=== PATIENT | female | born 1945 | race Caucasian/White ===

== ENCOUNTER 2016-05-25 17:30 | Emergency (ER) | payer OTHER ==
[~2016-05-25] VITALS: Wt 69.0 kg
[~2016-05-25 17:30] MED LIST: AMLO2.5T78 PO; GABA300C16 PO; LANT3I SC; LISI-313 PO; METF500T4 PO; NOVO3I SC; RANI300C7 PO; TRAM50TA2 PO
[2016-05-25] MEDS ORDERED: traMADol 50 MG TAB PO ONE (19:30)
--- NOTE | 2016-05-25 20:42 | RADRPT ---
PROCEDURE: CT lumbar spine without contrast CLINICAL INDICATION: Lower back pain status post fall. TECHNIQUE: CT scan of the lumbar spine was performed on a high-resolution multi-detector CT scanne r. No IV contrast was administered. Coronal and sagittal reformatted images were obtained from the axial source images. Images were reviewed on a high-resolution PACS workstation. Exam CTDI = 23.91 mGy and the DLP = 698.35 mGy-cm. One or more of the following dose reduction techniques were used: Automated exposure control. Adjustment of the mA and/or kV according to patient size. Use of iterative reconstruction technique. COMPARISON: None available FINDINGS: There is normal lumbar lordosis. There is transitional anatomy with lumbarization of S1. There is m ild levoconvex curvature centered at L4-L5. Left lateral bridging osteophyte is seen at L4-L5 and b ilateral at L5-S1. Multiple ill-defined lytic lesions are seen throughout the lumbar spine and pelvi c bones. Alignment remains intact. No acute fracture or dislocation is seen. The vertebral body he ights are preserved. Posterior elements structures are equally unremarkable. The paraspinous soft t issues are unremarkable. No mass, hematoma, or other soft tissue abnormality is seen. There is merlin roximately 1.4 cm indeterminate hypodensity in the right posterior hepatic lobe. There is mild aort oiliac atherosclerosis. There are a few scattered diverticula in the sigmoid colon without evidence of acute diverticulitis. T12-L1: The disk height is maintained. Dorsal endplate osteophyte seen at this level. The central c anal and bilateral neural foramina are adequately patent. L1-L2: The disk height is maintained. Bridging left lateral osteophyte is noted. The central herman l and bilateral neural foramina are adequately patent. L2-L3: There is mild right lateral disk height loss. Disk bulge eccentric to the left, with minima l facet arthropathy are seen at this level. There is mild left neural foraminal stenosis. The cent ral canal and right neural foramen are adequately patent. L3-L4: There is moderate right lateral disk height loss with discogenic endplate changes. Disk ost eophyte complex with small endplate osteophytes, and mild to moderate facet arthropathy are seen at this level. There is mild central canal stenosis. Bilateral neural foramina remain adequately moran nt. L4-L5: There is mild right lateral disk height loss. Bulky bridging left lateral osteophyte is pres ent. Diffuse disk bulge with moderate facet arthropathy and ligamentum flavum thickening are seen a t this level. There is moderate central canal stenosis with effacement of the left lateral recess. Bilateral neural foramina remain adequately patent. L5-S1: Partial fusion at disk level with bridging bilateral lateral osteophytes are present. Disk osteophyte complex, moderate facet arthropathy with ligamentum flavum thickening are seen at this le ranjeet. There is bilateral lateral recess stenosis. There is mild left neural neural foraminal stenos is. IMPRESSION: 1. No acute fracture or traumatic malalignment. 2. Numerous ill-defined lytic lesions in the lumbar spine and pelvic bones concerning for multiple myeloma or metastatic disease. Correlate with clinical history. Consider bone scan for further curt luation. 3. Mild multilevel degenerative changes more evident at L4-L5 and L5-S1, as detailed above. RPTAT: HHO .Maryan Manzanares MD, MD Date Time Electronically viewed and signed by .Maryan Manzanares MD, on 05/25/2016 20:41 .O/
[2016-05-25] MEDS ORDERED: HYDR-906 PO (20:54)
[2016-05-25 20:56] VITALS: BP 127/60; PULSE 90; RESP 19; TEMP 100
--- NOTE | 2016-05-25 21:12 | ERD ---
ER Documentation Chief Complaint Date/Time DATE: 05/25/16 TIME: 20:58 Chief Complaint BACKPAIN FROM A FALL THIS MORNING. NO NECK PAIN. NO LOC OR HEAD INJURY HPI 71-year-old female complaining of lower back pain 15 years. This morning, she fell while standing up from the toilet. She landed on her left arm. Patient states that her back pain got much worse after the fall this morning. The pain is in the lumbar region, and radiates down bilateral legs. Denies saddle paresthesia. Denies bowel or bladder dysfunction. History of diabetes, hypertension, hypercholesterol, and arthritis. Denies history of cancer. ROS All systems reviewed and are negative except as per history of present illness. Medications Home Meds Active Scripts Hydrocodone/Acetaminophen (Odell 5-325 Tablet) 1 Each Tablet, 1 TAB PO Q6H Y for PAIN, #20 TAB Prov:KIKI PHAM. PIPE SMOKING MACHINE OFFBEARER 05/25/16 Reported Medications Lisinopril* (Lisinopril*) 5 Mg Tablet, 5 MG PO DAILY, #30 TAB 02/01/16 Amlodipine Besylate* (Amlodipine Besylate*) 2.5 Mg Tablet, 2.5 MG PO DAILY, #30 TAB 02/01/16 Insulin Aspart* (Novolog Insulin Pen*) 100 Unit/Ml Soln, 10 UNIT SC AC MEALS, EA 01/14/14 Insulin Glargine* (Lantus*) 100 Unit/Ml Soln, 45 UNIT SC HS, EA 01/14/14 Tramadol HCl (Tramadol HCl) 50 Mg Tab, 50 MG PO TID, TAB 01/14/14 Ranitidine Hcl (Ranitidine Hcl) 300 Mg Capsule, 300 MG PO HS, CAP 01/14/14 Gabapentin* (Gabapentin*) 300 Mg Capsule, 600 MG PO QHS, CAP 01/14/14 Metformin* (Glucophage*) 500 Mg Tab, 500 MG PO BID 08/29/12 Allergies Allergies: Coded Allergies: Penicillins (Verified Allergy, Severe, 02/01/16) ibuprofen (Verified Allergy, Severe, 02/01/16) PMhx/Soc History of Surgery: Yes (HYSTERECTOMY, THYROID SX) Anesthesia Reaction: No Hx Neurological Disorder: No Hx Respiratory Disorders: No Hx Cardiac Disorders: No Hx Psychiatric Problems: No Hx Miscellaneous Medical Probl: No Hx Alcohol Use: No Hx Substance Use: No Hx Tobacco Use: No Physical Exam Vitals Vital Signs Date Time Temp Pulse Resp B/P Pulse Ox O2 Delivery O2 Flow Rate FiO2 05/25/16 20:56 100.0 90 19 127/60 97 Room Air 05/25/16 17:35 98.2 95 20 139/66 98 Physical Exam General impression: Well-developed, well-nourished. Alert, oriented, in no acute distress Head: Normocephalic, atraumatic. Neck: Supple, nontender. No lymphanopathy. No nuchal rigidity. Respiration: Normal respiratory effort. Lungs clear to auscultate bilaterally. No wheezes, rales or rhonchi. Cardiovascular: Regular rate and rhythm. No murmurs or extra heart sounds. Back: Normal to inspection. No midline spine tenderness. Bilateral paraspinal muscle spasm noted in the lumbar region. Extremities: Extremities normal to inspection, nontender. ROM normal. No left arm and left shoulder tenderness. Neuro: Mental status normal, speech normal. No saddle paresthesia. Skin: Normal turgor. No rash or lesions. Psych: Normal mood and affect. Results 24 hrs Current Medications Medications (Trade) Dose Ordered Sig/Taj Route PRN Reason Start Time Stop Time Status Last Admin Dose Admin Tramadol HCl (Ultram) 50 mg ONCE ONCE PO 05/25/16 19:30 05/25/16 19:31 DC 05/25/16 19:15 Procedures/MDM 71-year-old female presented ED with acute on chronic lower back pain. CT of lumbar spine was obtained to rule out fractures. No acute fracture or traumatic malalignment seen on CT. Multiple ill-defined lytic lesions in the lumbar spine and pelvic bones concerning for multiple myeloma or metastatic disease. Mild multilevel degenerative changes noted, more evident at L4-L5 and L5-S1. Low suspicion for cauda equina syndrome, or spinal epidural abscess. Patient is given tramadol 50 mg p.o. in the ED. Patient states that no improvement pain with tramadol. I will prescribe her with small amount of Odell for home. Patient is also advised to use a heating pad and obtain massage to ease her muscle spasm. Patient advised to follow-up with her PCP for further evaluation of the lytic lesions in her spine. Patient appears well, stable for discharge and outpatient management. Medical decision making shared with patient and family. Education provided to patient and family. Patient and family expressed understanding of the plan. Medications on discharge: Odell. Follow-up: Primary care provider in 2-3 days or return to ED if worse. Departure Diagnosis: Primary Impression: Back pain Back pain location: low back pain Chronicity: chronic Back pain laterality : bilateral Sciatica presence: without sciatica Qualified Code: M54.5 - Chronic bilateral low back pain without sciatica Condition: Good Patient Instructions: Back Pain (Acute Or Chronic), Back Spasm, No Trauma Referrals: QUEENIE HARRISON (PCP) Additional Instructions: Llame al doctor MAANA y tricia kenia ANGÉLICA PARA DENTRO DE 2-3 ALBA.Dgale a la secretaria que nosotros le instruimos hacer esta angélica.Avise o llame si vila condicin se empeora antes de la angélica. Regresa aqui si peor o no mejor. KIKI PHAM NP May 25, 2016 21:08
== END 2016-05-25 20:58 | disposition home or self-care (01) ==
LOC: FTE 17:30
DX: S39.92XA Unspecified injury of lower back, initial encounter (principal); I10 Essential (primary) hypertension; E11.9 Type 2 diabetes mellitus without complications; W18.11XA Fall from or off toilet without subsequent striking against object, initial encounter; Y92.89 Other specified places as the place of occurrence of the external cause; Z79.84 Long term (current) use of oral hypoglycemic drugs; Z79.4 Long term (current) use of insulin
CPT/HCPCS: 72131; Z7502; Z7610

== ENCOUNTER 2016-06-21 12:01 | Emergency (ER) | payer OTHER ==
[~2016-06-21] VITALS: Ht 160 cm; Wt 66.9 kg
[~2016-06-21 12:01] MED LIST changes: +HYDR-906 PO
[2016-06-21 12:14] VITALS: Ht 160 cm; Wt 66.9 kg
[2016-06-21] MEDS ORDERED: LIDOCAINE 2% (MDV) 20 ML INJ INJ ONE (13:00)
[2016-06-21] MEDS ORDERED: LIDOCAINE 4% CR TOP ONE (13:00)
[2016-06-21] MEDS ORDERED: BACTDS PO (14:03)
--- NOTE | 2016-06-21 14:11 | ERD ---
ER Documentation Chief Complaint Date/Time DATE: 06/21/16 TIME: 14:06 Chief Complaint abscess to the chest (ASHLEIGH STORMTATIANA Kilgore) HPI This is a 71-year-old female that presents to the ER with an abscess to her chest wall. Patient states that she has had this problem for the last few months and that on Friday began to get red and she noticed that there was pus under it. Patient states that area is very painful. She denies any fevers or chills. Patient denies any chest pain or shortness of breath. Patient has had these recurring abscesses in (CONG STORM) ROS 12 point review of systems was done, all negative except per HPI. (CONG STORM) Medications Home Meds Active Scripts Sulfamethoxazole-Trimethoprim* (Bactrim* DS) 800-160 Mg Tab, 1 TAB PO BID for 7 Days, TAB Prov:CONG STORM 06/21/16 Hydrocodone/Acetaminophen (Ashford 5-325 Tablet) 1 Each Tablet, 1 TAB PO Q6H Y for PAIN, #20 TAB Prov:KIKI PHAM MIRROR FINISHING MACHINE OPERATOR 05/25/16 Reported Medications Lisinopril* (Lisinopril*) 5 Mg Tablet, 5 MG PO DAILY, #30 TAB 02/01/16 Amlodipine Besylate* (Amlodipine Besylate*) 2.5 Mg Tablet, 2.5 MG PO DAILY, #30 TAB 02/01/16 Insulin Aspart* (Novolog Insulin Pen*) 100 Unit/Ml Soln, 10 UNIT SC AC MEALS, EA 01/14/14 Insulin Glargine* (Lantus*) 100 Unit/Ml Soln, 45 UNIT SC HS, EA 01/14/14 Tramadol HCl (Tramadol HCl) 50 Mg Tab, 50 MG PO TID, TAB 01/14/14 Ranitidine Hcl (Ranitidine Hcl) 300 Mg Capsule, 300 MG PO HS, CAP 01/14/14 Gabapentin* (Gabapentin*) 300 Mg Capsule, 600 MG PO QHS, CAP 01/14/14 Metformin* (Glucophage*) 500 Mg Tab, 500 MG PO BID 08/29/12 Allergies Allergies: Coded Allergies: Penicillins (Verified Allergy, Severe, 02/01/16) ibuprofen (Verified Allergy, Severe, 02/01/16) PMhx/Soc History of Surgery: Yes (HYSTERECTOMY, partial thyroidectomy) Anesthesia Reaction: No Hx Neurological Disorder: No Hx Respiratory Disorders: No Hx Cardiac Disorders: No Hx Psychiatric Problems: No Hx Alcohol Use: No Hx Substance Use: No Hx Tobacco Use: No (CONG STORM) Physical Exam Vitals Vital Signs Date Time Temp Pulse Resp B/P Pulse Ox O2 Delivery O2 Flow Rate FiO2 06/21/16 12:14 98.4 100 18 136/62 96 (KRISTIN CARABALLO MD) Physical Exam GENERAL: The patient is well developed and appropriate for usual state of health , in no apparent distress. HEENT: Atraumati CHEST: Clear to auscultation bilaterally. There are no rales, wheezes or rhonchi. Patient has a 4 cm x 4 cm area of fluctuance on the left side of the chest. HEART: Regular rate and rhythm. No murmurs, clicks, rubs or gallops. NEURO: Alert and oriented. SKIN: no rashes (CONG STORM) Results 24 hrs Current Medications Medications (Trade) Dose Ordered Sig/Taj Route PRN Reason Start Time Stop Time Status Last Admin Dose Admin Lidocaine (Lmx 4% Plus) 1 applic ONCE ONCE TOP 06/21/16 13:00 06/21/16 13:01 DC Lidocaine (Xylocaine 2% (Mdv) 20 ml) 20 ml ONCE ONCE INJ 06/21/16 13:00 06/21/16 13:01 DC (KRISTIN CARABALLO MD) Procedures/MDM Abscess Incision and Drainage with irrigation by me: Location: left side of chest wall Anesthesia: LMX and Local 1% Lidocaine Technique: Irrigated. Disrupted loculations w/ instrumentation. cheesy like discharged was expressed and purulent yellow/green discharge as well Packin/4 inch Complications: Neurovascularly intact post procedure 48 hour wound check. Scar minimization instructions given. Patient's skin symptoms have stabilized while they have been evaluated in the department and are appropriate for outpatient care and work up. Exam and w/u not consistent w/ sepsis, deep space infection, or foreign body. Patient will be sent home with Bactrim. She is to follow-up with her primary care doctor within 1-2 days return to ER sooner if symptoms worsen. Dr. Caraballo was at bedside and helped with procedure and patient care. Patient needs to return to ER sooner if symptoms worsen. (CONG STORM) note-I agree with detailed history and physical exam procedure plan of mid- level provider Subjective -patient presents with worsening redness and tender lesion on her anterior chest wall. She has a history of a previous small bump. History signs and symptoms consistent with an infected sebaceous cyst. Objective-afebrile and vital signs stable with no acute abnormalities. There is a tender approximately 2 cm erythematous fluctuant lesion on anterior chest wall. Patient was incised and drained after Betadine and local 3 cc of 1% lidocaine anesthesia was packed with approximately 3 cm of quarter-inch gauze. Patient tolerated procedure well. Assessment-infected sebaceous cyst anterior chest wall status post incision and drainage Plan-patient was discharged home with a prescription of Bactrim instructions for wound check in 2 days and gauze removal. Patient was advised to return sooner for new or worsening symptoms or fevers, worsening redness. (KRISTIN CARABALLO MD) Departure Diagnosis: Primary Impression: Sebaceous cyst Condition: Stable Patient Instructions: Abscess, Incision And Drainage Additional Instructions: Regrese a estas instalaciones dentro de DOS TRAORE para un examen de seguimiento.Regrese antes si vila condicin se empeora. CONG STORM Jun 21, 2016 14:11 KRISTIN CARABALLO MD Jun 21, 2016 14:27
== END 2016-06-21 14:56 | disposition home or self-care (01) ==
LOC: FTE 12:01
DX: L72.3 Sebaceous cyst (principal); E11.9 Type 2 diabetes mellitus without complications; Z79.4 Long term (current) use of insulin; Z79.84 Long term (current) use of oral hypoglycemic drugs
CPT/HCPCS: 10060; Z7502; Z7610

== ENCOUNTER 2016-06-23 10:49 | Emergency (ER) | payer OTHER ==
[~2016-06-23] VITALS: Ht 152.4 cm; Wt 66.5 kg
[~2016-06-23 10:49] MED LIST changes: +BACTDS PO
[2016-06-23 10:53] VITALS: Ht 152.4 cm; Wt 66.5 kg
--- NOTE | 2016-06-23 15:56 | ERD ---
ER Documentation Chief Complaint Date/Time DATE: 06/23/16 TIME: 15:54 Chief Complaint Chest cyst 48 hour follow up after I & D. Serousangenous drainage noted. HPI 71-year-old female presents to the ED for a wound check. Patient got a chest abscess drained 2 days ago here in the ED. Patient states that the pain has improved. States that she has been taking Bactrim consistently. Denies any new pain, fever, chills, chest pain, shortness of breath, abdominal pain, nausea , vomiting, loss of sensation, redness, swelling. ROS All systems reviewed and are negative except as per history of present illness. Medications Home Meds Active Scripts Sulfamethoxazole-Trimethoprim* (Bactrim* DS) 800-160 Mg Tab, 1 TAB PO BID for 7 Days, TAB Prov:CONG STORM 06/21/16 Hydrocodone/Acetaminophen (Soldier 5-325 Tablet) 1 Each Tablet, 1 TAB PO Q6H Y for PAIN, #20 TAB Prov:KIKI PHAM. HOUSE ADMIN 05/25/16 Reported Medications Lisinopril* (Lisinopril*) 5 Mg Tablet, 5 MG PO DAILY, #30 TAB 02/01/16 Amlodipine Besylate* (Amlodipine Besylate*) 2.5 Mg Tablet, 2.5 MG PO DAILY, #30 TAB 02/01/16 Insulin Aspart* (Novolog Insulin Pen*) 100 Unit/Ml Soln, 10 UNIT SC AC MEALS, EA 01/14/14 Insulin Glargine* (Lantus*) 100 Unit/Ml Soln, 45 UNIT SC HS, EA 01/14/14 Tramadol HCl (Tramadol HCl) 50 Mg Tab, 50 MG PO TID, TAB 01/14/14 Ranitidine Hcl (Ranitidine Hcl) 300 Mg Capsule, 300 MG PO HS, CAP 01/14/14 Gabapentin* (Gabapentin*) 300 Mg Capsule, 600 MG PO QHS, CAP 01/14/14 Metformin* (Glucophage*) 500 Mg Tab, 500 MG PO BID 08/29/12 Allergies Allergies: Coded Allergies: Penicillins (Verified Allergy, Severe, 02/01/16) ibuprofen (Verified Allergy, Severe, 02/01/16) PMhx/Soc History of Surgery: Yes (HYSTERECTOMY, partial thyroidectomy) Anesthesia Reaction: No Hx Neurological Disorder: No Hx Respiratory Disorders: No Hx Cardiac Disorders: Yes (htn) Hx Psychiatric Problems: No Hx Alcohol Use: No Hx Substance Use: No Hx Tobacco Use: No Smoking Status: Never smoker Physical Exam Vitals Vital Signs Date Time Temp Pulse Resp B/P Pulse Ox O2 Delivery O2 Flow Rate FiO2 06/23/16 10:53 97.7 109 20 121/55 98 Physical Exam Const: Ipt-gss-glztsffre, well-nourished. In no acute distress. Head: Atraumatic, normocephalic Eyes: Normal Conjunctiva without injection. No purulent discharge. PERRL. EOMI ENT: Normal external ear, nose, mouth. No drooling. No trismus. Neck: Full range of motion. No meningismus. No cervical lymphadenopathy. Resp: Clear to auscultation bilaterally. No wheezing, rhonchi, rales, or crackles. No accessory muscle use. No retractions. Cardio: Regular rate and rhythm. No murmurs, rubs or gallops. Skin: No petechiae, purpura. 2 cm round abscess noted on the left side of patient's anterior chest without any fluctuance, induration. No bleeding noted. Packing was noted. No purulent discharge noted. Ext: No cyanosis, or edema. Neur: Awake and alert. Psych: Normal Mood and Affect Procedures/MDM This is a 71-year-old female with no significant past medical history presents to the ED for a wound check. Patient gave consent to remove the packing at this time. A clean dressing was applied after it was cleaned with normal saline. There is low suspicion for cellulitis, deep space infection, acute ID, pneumothorax, pneumonia, chest wall pain, or other emergent conditions. Strictly instructed patient to complete the course of antibiotics. Follow up with primary care physician in 1-2 days. Instructed patient to return to the ED sooner for any worsening symptoms. Patient's questions were answered. Patient understood and agreed with discharge plan. Patient discharged stable. Departure Diagnosis: Primary Impression: Encounter for wound re-check Condition: Stable Patient Instructions: Wound Care, Wound Packing Referrals: TORI CAST (PCP) [facility] YOU HAVE RECEIVED A MEDICAL SCREENING EXAM AND THE RESULTS INDICATE THAT YOU DO NOT HAVE A CONDITION THAT REQUIRES URGENT TREATMENT IN THE EMERGENCY DEPARTMENT. FURTHER EVALUATION AND TREATMENT OF YOUR CONDITION CAN WAIT UNTIL YOU ARE SEEN IN YOUR DOCTORS OFFICE WITHIN THE NEXT 1-2 DAYS. IT IS YOUR RESPONSIBILITY TO MAKE AN APPOINTMENT FOR FOLOW-UP CARE. IF YOU HAVE A PRIMARY DOCTOR --you should call your primary doctor and schedule an appointment IF YOU DO NOT HAVE A PRIMARY DOCTOR YOU CAN CALL OUR PHYSICIAN REFERRAL HOTLINE AT IF YOU CAN NOT AFFORD TO SEE A PHYSICIAN YOU CAN CHOSE FROM THE FOLLOWING [facility] [address] [facility] [address] [facility] [facility] [address] [facility] [address] [facility]. [facility] [address] [facility]. [facility] [address] [facility]. [facility] YOU HAVE RECEIVED A MEDICAL SCREENING EXAM AND THE RESULTS INDICATE THAT YOU DO NOT HAVE A CONDITION THAT REQUIRES URGENT TREATMENT IN THE EMERGENCY DEPARTMENT. FURTHER EVALUATION AND TREATMENT OF YOUR CONDITION CAN WAIT UNTIL YOU ARE SEEN IN YOUR DOCTORS OFFICE WITHIN THE NEXT 1-2 DAYS. IT IS YOUR RESPONSIBILITY TO MAKE AN APPOINTMENT FOR FOLOW-UP CARE. IF YOU HAVE A PRIMARY DOCTOR --you should call your primary doctor and schedule and appointment IF YOU DO NOT HAVE A PRIMARY DOCTOR YOU CAN CALL OUR PHYSICIAN REFERRAL HOTLINE AT . IF YOU CAN NOT AFFORD TO SEE A PHYSICIAN YOU CAN CHOSE FROM THE FOLLOWING [facility] INSTITUTIONS: [facility] [address] [place] [address] [facility] [address] [place] [address] [facility] [address] [place] [address] [facility] URGENT CARE/SPECIALTIES Additional Instructions: Llame al doctor MAANA y tricia kenia ANGÉLICA PARA DENTRO DE 1-2 ALBA.Dgale a la secretaria que nosotros le instruimos hacer esta angélica.Avise o llame si vila condicin se empeora antes de la angélica. Regresa aqui si peor o no mejor. BHUPENDRA MOTLEY PA-Cb 26, 2017 15:56 Llame al doctor MAANA y tricia kenia ANGÉLICA PARA DENTRO DE 1-2 ALBA.Dgale a la secretaria que nosotros le instruimos hacer esta angélica.Avise o llame si vila condicin se empeora antes de la angélica. Regresa aqui si peor o no mejor. BHUPENDRA MOTLEY PA-C Jun 23, 2016 15:56
== END 2016-06-23 12:01 | disposition home or self-care (01) ==
LOC: FTE 10:49
DX: Z48.01 Encounter for change or removal of surgical wound dressing (principal); I10 Essential (primary) hypertension; E11.9 Type 2 diabetes mellitus without complications; Z79.4 Long term (current) use of insulin; Z79.84 Long term (current) use of oral hypoglycemic drugs
CPT/HCPCS: 99281

== ENCOUNTER 2016-12-31 11:22 | Emergency (ER) | payer OTHER ==
[~2016-12-31] VITALS: Ht 157.5 cm; Wt 70.0 kg
[2016-12-31 11:35] VITALS: Ht 157.5 cm; Wt 70.0 kg
[2016-12-31] MEDS ORDERED: MECLIZINE 12.5 MG TAB PO ONE (14:30)
--- NOTE | 2016-12-31 15:45 | RADRPT ---
PROCEDURE: CT Brain without contrast. CLINICAL INDICATION: Dizziness. TECHNIQUE: A CT of the brain was performed on multidetector high-resolution CT scanner utilizing a xial sections from the skull base through the vertex without contrast. The scan was reviewed in sof t tissue brain and high frequency resolution bone algorithm windows. Images were reviewed on a high -resolution PACS workstation. One or more the following does reduction techniques were utilized: Aut omated exposure control, adjustment of the mA/ or kV according to patient's size, or use of iterativ e reconstruction technique. The exam CTDI = 44.60 mGy and the DLP = 630.2 mGy-cm. COMPARISON: Brain CT 08/29/2012. FINDINGS: The ventricles and sulci are mildly prominent indicative of volume loss. There is no intracranial h emorrhage, mass effect or midline shift. No abnormal intra-axial or extra-axial fluid collections a re seen. The nathan/white matter differentiation is preserved. There are mild scattered foci of hypoattenuation in the white matter, which are nonspecific in etiol ogy but likely reflect chronic small vessel ischemic changes. There are mild intracranial vascular calcifications consistent with atherosclerosis. The visualized paranasal sinuses are essentially rodney ar. The left mastoid air cells are underpneumatized/partially visualized. IMPRESSION: 1. No acute intracranial hemorrhage, transcortical infarction or mass effect. 2. Mild intracranial atherosclerosis and chronic small vessel ischemic changes. 3. Mild generalized cerebral volume loss. RPTAT: HH .Mariana Monsivais MD, MD Date Time Electronically viewed and signed by .Mariana Monsivais MD, MD on 12/31/2016 15:44 .N/
[2016-12-31 15:50] LABS: BASOPHILS % 0.4 % (0.0-2.0); EOSINOPHILS % 0.4 % (0.0-7.0); HEMATOCRIT 37.8 % (37.0-47.0); HEMOGLOBIN 12.1 g/dl (12.0-16.0); LYMPHOCYTES # 1.9 10^3/ul (0.8-2.9); MEAN CORPUSCULAR HEMOGLOBIN 27.8 pg (29.0-33.0); MEAN CORPUSCULAR VOLUME 86.9 fl (82.0-101.0); MEAN PLATELET VOLUME 9.4 fl (7.4-10.4); MONOCYTE # 0.3 10^3/ul (0.3-0.9); NEUTROPHILS % 69.7 % (39.0-77.0); PLATELET COUNT 350 10^3/UL (140-415); RED BLOOD COUNT 4.35 10^6/ul (4.20-5.40); RED CELL DISTRIBUTION WIDTH 14.6 % (11.5-14.5); WHITE BLOOD COUNT 7.5 10^3/ul (4.8-10.8)
[2016-12-31] MEDS ORDERED: LANT3I SC (16:01)
[2016-12-31] MEDS ORDERED: METF1000 PO (16:01)
[2016-12-31 16:04] LABS: ADD UMIC YES; UR ASCORBIC ACID NEGATIVE (NEGATIVE); UR BILIRUBIN (Dip) NEGATIVE (NEGATIVE); UR BLOOD (Dip) NEGATIVE (NEGATIVE); UR CLARITY CLEAR (CLEAR); UR COLOR STRAW (YELLOW); UR GLUCOSE (Dip) 2+ mg/dL (NEGATIVE); UR KETONES (Dip) NEGATIVE (NEGATIVE); UR LEUKOCYTE ESTERASE (Dip) 1+ Leu/ul (NEGATIVE); UR NITRITE (Dip) NEGATIVE (NEGATIVE); UR RBC 0 /HPF (0-5); UR SPECIFIC GRAVITY (Dip) 1.009 (1.003-1.030); UR TOTAL PROTEIN (Dip) NEGATIVE (NEGATIVE); UR UROBILINOGEN (Dip) NEGATIVE (NEGATIVE)
[2016-12-31] MEDS ORDERED: LISI10TA2 PO (16:04)
[2016-12-31] MEDS ORDERED: INSU100I12 SQ (16:04)
[2016-12-31 16:06] LABS: INR 0.91; PROTIME 12.2 Sec (12.2-14.2)
[2016-12-31 16:07] LABS: PARTIAL THROMBOPLASTIN TIME 26.5 Sec (25.0-35.0)
[2016-12-31 16:09] LABS: ANION GAP 15 (8-16); BLOOD UREA NITROGEN 12 mg/dl (7-20); CALCIUM 9.7 mg/dl (8.4-10.2); CARBON DIOXIDE 28 mmol/L (21-31); CHLORIDE 99 mmol/L (97-110); CREATININE 0.77 mg/dl (0.44-1.00); GLUCOSE 273 mg/dl (70-220); POTASSIUM 4.4 mmol/L (3.5-5.1); SODIUM 138 mmol/L (135-144)
[2016-12-31] MEDS ORDERED: BASAGLAR 100 UNIT/ML SQ (16:12)
[2016-12-31 16:24] LABS: TROPONIN-I < 0.012 ng/ml (0.00-0.12)
[2016-12-31 16:26] LABS: BARBITURATES Negative (NEGATIVE); BENZODIAZEPINES Negative (NEGATIVE); CANNABINOIDS Negative (NEGATIVE); COCAINE Negative (NEGATIVE); OPIATES Negative (NEGATIVE)
--- NOTE | 2016-12-31 16:32 | ERA ---
ER Documentation Chief Complaint Date/Time DATE: 12/31/16 TIME: 16:24 Chief Complaint dizzines and nausea HPI This is a 71-year-old female with a past medical history of diabetes, hypertension, GERD, diabetic peripheral neuropathy, previous episodes of vertigo who is presenting with concerns by the patient that she is having an exacerbation of her vertigo. She states that when she stands still or lays down and closes her eyes, her symptoms significantly improve. However, when she opens her eyes and looks around or when she sits up with her eyes open, she has a sudden feeling of dizziness, like the room is spinning around her and she feels nauseated. She has had a few episodes of nonbilious nonbloody vomiting associated with the nausea. The patient has not been sick recently. She has had no fever or chills. She denies any trauma. She did not fall or hit her head. She denies any focal deficits. She has no weakness or numbness or tingling to the face or extremities. She does not feel uncoordinated. She denies any chest pain or trouble breathing. She has no abdominal pain. She has not had any changes to bowel movements urination. ROS All systems reviewed and are negative except as per history of present illness. Medications Home Meds Reported Medications [Basaglar 100UNIT/Ml] No Conflict Check, 50 UNIT SQ QHS INSULIN KWIKPEN 12/31/16 Lisinopril* (Lisinopril*) 10 Mg Tablet, 10 MG PO DAILY, #30 TAB 12/31/16 Insulin Lispro (Humalog Kwikpen U-100) 100 Unit/1 Ml Insuln.pen, 0 SQ SLIDING SCALE 12 UNITS-QAM,11 UNITS-NOON, 11 UNITS-QPM 12/31/16 Metformin Hcl* (Metformin Hcl*) 1,000 Mg Tablet, 1000 MG PO WITH BREAKFAST DINNE , #60 TAB 12/31/16 Amlodipine Besylate* (Amlodipine Besylate*) 2.5 Mg Tablet, 2.5 MG PO DAILY, #30 TAB 02/01/16 Tramadol HCl (Tramadol HCl) 50 Mg Tab, 50 MG PO TID, TAB 01/14/14 Ranitidine Hcl (Ranitidine Hcl) 300 Mg Capsule, 300 MG PO HS, CAP 01/14/14 Gabapentin* (Gabapentin*) 300 Mg Capsule, 600 MG PO QHS, CAP 01/14/14 Discontinued Reported Medications Insulin Glargine* (Lantus*) 100 Unit/Ml Soln, 50 UNIT SC QHS, #1 VIAL 12/31/16 Lisinopril* (Lisinopril*) 5 Mg Tablet, 5 MG PO DAILY, #30 TAB 02/01/16 Insulin Aspart* (Novolog Insulin Pen*) 100 Unit/Ml Soln, 10 UNIT SC AC MEALS, EA 01/14/14 Insulin Glargine* (Lantus*) 100 Unit/Ml Soln, 45 UNIT SC HS, EA 01/14/14 Metformin* (Glucophage*) 500 Mg Tab, 500 MG PO BID 08/29/12 Discontinued Scripts Sulfamethoxazole-Trimethoprim* (Bactrim* DS) 800-160 Mg Tab, 1 TAB PO BID for 7 Days, TAB Prov:CONG STORM 06/21/16 Hydrocodone/Acetaminophen (Glen 5-325 Tablet) 1 Each Tablet, 1 TAB PO Q6H Y for PAIN, #20 TAB Prov:KIKI PHAM LINING CASER 05/25/16 Allergies Allergies: Coded Allergies: Penicillins (Verified Allergy, Severe, 12/31/16) ibuprofen (Verified Allergy, Severe, 12/31/16) PMhx/Soc History of Surgery: Yes (HYSTERECTOMY, partial thyroidectomy) Anesthesia Reaction: No Hx Neurological Disorder: No Hx Respiratory Disorders: No Hx Cardiac Disorders: Yes (htn) Hx Psychiatric Problems: No Hx Miscellaneous Medical Probl: Yes (dm) Hx Alcohol Use: No Hx Substance Use: No Hx Tobacco Use: No Smoking Status: Never smoker FmHx Family History: diabetes Physical Exam Vitals Vital Signs Date Time Temp Pulse Resp B/P Pulse Ox O2 Delivery O2 Flow Rate FiO2 12/31/16 19:47 98.3 92 17 113/72 99 Room Air 12/31/16 16:00 95 18 111/69 98 Room Air 12/31/16 11:35 98.1 81 18 118/78 99 Physical Exam Const: NAD, Well developed, Well Nourished Head: Atraumatic Eyes: Normal Conjunctiva, PERRLA, EOMI, Nystagmus to left gaze ENT: Normal External Ears, Nose and Mouth. Neck: Full range of motion. ~ No meningismus. Resp: Clear to auscultation bilaterally Cardio: Regular rate and rhythm, no murmurs Abd: Soft, obese, non tender, non distended. Normal bowel sounds Skin: No petechiae or rashes Back: No midline or flank tenderness Ext: No cyanosis, or edema Neur: Awake and alert, strength intact, sensation intact, CN intact, coordination intact to [id number] and [id number] Psych: Normal Mood and Affect Result Diagram: 12/31/16 1530 12/31/16 1530 Results 24 hrs Laboratory Tests Test 12/31/16 15:30 White Blood Count 7.510^3/ul Red Blood Count 4.3510^6/ul Hemoglobin 12.1g/dl Hematocrit 37.8% Mean Corpuscular Volume 86.9fl Mean Corpuscular Hemoglobin 27.8pg Mean Corpuscular Hemoglobin Concent 32.0g/dl Red Cell Distribution Width 14.6% Platelet Count 47754^3/UL Mean Platelet Volume 9.4fl Neutrophils % 69.7% Lymphocytes % 25.0% Monocytes % 4.0% Eosinophils % 0.4% Basophils % 0.4% Nucleated Red Blood Cells % 0.0/100WBC Neutrophils # (Manual) 5.210^3/ul Lymphocytes # 1.910^3/ul Monocytes # 0.310^3/ul Eosinophils # 0.010^3/ul Basophils # 0.010^3/ul Nucleated Red Blood Cells # 0.010^3/ul Prothrombin Time 12.2Sec Prothrombin Time Ratio 1.0 INR International Normalized Ratio 0.91 Activated Partial Thromboplast Time 26.5Sec Urine Color STRAW Urine Clarity CLEAR Urine pH 7.0 Urine Specific [place] 1.009 Urine Ketones NEGATIVEmg/dL Urine Nitrite NEGATIVEmg/dL Urine Bilirubin NEGATIVEmg/dL Urine Urobilinogen NEGATIVEmg/dL Urine Leukocyte Esterase 1+Sosa/ul Urine Microscopic RBC 0/HPF Urine Microscopic WBC 2/HPF Urine Hemoglobin NEGATIVEmg/dL Urine Glucose 2+mg/dL Urine Total Protein NEGATIVEmg/dl Sodium Level 138mmol/L Potassium Level 4.4mmol/L Chloride Level 99mmol/L Carbon Dioxide Level 28mmol/L Anion Gap 15 Blood Urea Nitrogen 12mg/dl Creatinine 0.77mg/dl Glucose Level 273mg/dl Hemoglobin A1c 7.8% Calcium Level 9.7mg/dl Troponin I < 0.012ng/ml Urine Opiates Screen Negative Urine Barbiturates Negative Urine Amphetamines Screen Negative Urine Benzodiazepines Screen Negative Urine Cocaine Screen Negative Urine Cannabinoids Negative Current Medications Medications (Trade) Dose Ordered Sig/Taj Route PRN Reason Start Time Stop Time Status Last Admin Dose Admin Meclizine HCl 25 mg 25 mg ONCE ONCE PO 12/31/16 14:30 12/31/16 14:31 DC 12/31/16 14:39 Sodium Chloride (NS) 1,000 ml @ 1,000 mls/hr Q1H ONCE IV 12/31/16 17:30 12/31/16 18:29 DC 12/31/16 18:09 Diazepam (Valium) 5 mg ONCE ONCE IV 12/31/16 17:30 12/31/16 17:31 DC 12/31/16 18:13 Metoclopramide HCl (Reglan) 10 mg ONCE ONCE IV 12/31/16 17:30 12/31/16 17:31 DC 12/31/16 18:13 Procedures/MDM The patient's presentation warrants further workup. While several symptoms are consistent with her typical vertigo, she reports that it feels worse than normal. A neurologic workup will be completed to assess for the possibility of ischemia, as cerebellar ischemia could present similarly. CT The patient's CT of the head was read by the radiologist as not demonstrating any acute intracranial hemorrhage or infarction. The patient does have atrophy and chronic ischemic changes. CXR - Read by radiology IMPRESSION: No radiographic evidence for acute cardiopulmonary disease. Mild atherosclerotic vascular disease. Degenerative spondylosis of the thoracic spine Electronically viewed and signed by .Jonelle Nix MD, MD on 12/31/2016 17: 40 EKG Read by hi Rate/Rhythm: Regular rate and rhythm at a rate of 87 Intervals: Normal Hoffman: Normal Nonspecific ST changes, but no ST or T-wave abnormalities concerning for acute coronary syndrome Impression: No evidence of acute ischemia or arrhythmia The patient's blood work was obtained and reviewed. The patient's CBC is unremarkable. She has no leukocytosis or shift. She is not febrile and I do not suspect an infectious etiology. She is not anemic. The patient's CMP is unremarkable except for an elevated glucose. There are no findings consistent with DKA. The patient has no electrolyte abnormalities. She does not appear to have renal impairment. The patient does have a mildly elevated hemoglobin A1c, which may be evaluated further as an outpatient. Create UA showed 1+ leukocyte esterase, but no other findings consistent with a UTI. I do not intend to treat this without any urinary symptoms at this time. It is unlikely a urinary tract infection. The patient's UDS is negative. The patient was given meclizine and Valium in addition to IV fluids in the emergency department with complete resolution of her symptoms. She is able to ambulate and turn her head without difficulty. The patient did have her had any focal neurologic deficits, my suspicion for cerebral ischemia given her presentation is low. The patient needs to follow-up with her primary care doctor regarding this dizziness. She does have a history of vertigo, and it is possible that this was what caused her symptoms today. The patient is stable for discharge. She will call her physician in the morning to schedule an appointment. She will be given precautions with which to return to the emergency department. Departure Diagnosis: Primary Impression: Dizziness Condition: Stable JOSE TABARES MD Dec 31, 2016 16:32
[2016-12-31] MEDS ORDERED: METOCLOPRAMIDE 10 MG INJ IV ONE (17:30)
[2016-12-31] MEDS ORDERED: DIAZEPAM 5 MG/ML SYG IV ONE (17:30)
[2016-12-31] MEDS ORDERED: SOD CHLORIDE 0.9% 1,000 ML IV ONE (17:30)
--- NOTE | 2016-12-31 17:41 | RADRPT ---
PROCEDURE: XR Chest. CLINICAL INDICATION: Dyspnea, nausea and vertigo TECHNIQUE: AP Portable chest. COMPARISON: Chest x-ray 01/14/2014 FINDINGS: The soft tissues and bones are remarkable for multiple EKG leads superimposed on chest wall. Degene rative spondylosis of the thoracic spine is noted. No focal infiltrates, masses, or effusions are noted. The mediastinum and heart are remarkable for mild vascular calcifications of the thoracic ao rta and normal size heart.. No pneumothorax is present. IMPRESSION: 1. No radiographic evidence for acute cardiopulmonary disease 2. Mild atherosclerotic vascular disease 3. Degenerative spondylosis of the thoracic spine RPTAT: HDC .Jonelle Nix MD, Date Time Electronically viewed and signed by .Jonelle Nix MD, on 12/31/2016 17:40 .C/
[2016-12-31 19:47] VITALS: BP 113/72; PULSE 92; RESP 17; TEMP 98.3
== END 2016-12-31 19:47 | disposition home or self-care (01) ==
LOC: E/R 11:22
DX: R42 Dizziness and giddiness (principal); E11.9 Type 2 diabetes mellitus without complications; I10 Essential (primary) hypertension; R07.9 Chest pain, unspecified; Z79.4 Long term (current) use of insulin; Z79.84 Long term (current) use of oral hypoglycemic drugs
CPT/HCPCS: 36415; 70450; 71010; 80048; 80307; 81001; 83036; 84484; 85025; 85610; 85730; 93005; 96374; 96375; J2765; J3360; J7030; Z7502; Z7610

== ENCOUNTER 2017-04-03 20:04 | Emergency (ER) | payer OTHER ==
[~2017-04-03] VITALS: Ht 152.4 cm; Wt 70.5 kg
[~2017-04-03 20:04] MED LIST changes: -BACTDS PO; +BASAGLAR 100 UNIT/ML SQ; -HYDR-906 PO; +INSU100I12 SQ; -LANT3I SC; -LISI-313 PO; +LISI10TA2 PO; +METF1000 PO; -METF500T4 PO; -NOVO3I SC
[2017-04-03 20:16] VITALS: Ht 152.4 cm; Wt 70.5 kg
[2017-04-03] MEDS ORDERED: SOD CHLORIDE 0.9% 1,000 ML IV STA (22:31)
[2017-04-03] MEDS ORDERED: morphine 2 MG INJ IV STA (22:31)
[2017-04-03] MEDS ORDERED: ONDANSETRON 4 MG INJ IV STA (22:31)
--- NOTE | 2017-04-03 22:32 | ERD ---
ER Documentation Chief Complaint Chief Complaint LOWER MID AP WITH N/V/CHILLS X 3 HRS, HX HTN, DM HPI 72-year-old female with history of diabetes, hypertension, GERD diabetic neuropathy presents the ED complaining of several history of mild, nonradiating , crampy, generalized abdominal pain with multiple episodes of nonbloody, nonbilious emesis and watery, nonbloody, nonmucoid diarrhea after eating some bad food in her house. Denies chest pain, shortness of breath or palpitations. No headache or neck pain. No relieving or exacerbating factors. Objective fevers and chills. ROS All systems reviewed and are negative except as per history of present illness. Medications Home Meds Active Scripts Ciprofloxacin Hcl* (Ciprofloxacin Hcl*) 500 Mg Tablet, 500 MG PO BID for 3 Days , TAB Prov:OMAR TANG MD 04/04/17 Ondansetron Hcl* (Zofran*) 4 Mg Tablet, 4 MG PO Q8H Y for NAUSEA AND/OR VOMITING , #12 TAB Prov:OMAR TANG MD 04/04/17 Reported Medications Liraglutide (Victoza 2-Lefty) 0.6 Mg/0.1 Ml Pen.injctr, 0.6 MG SQ DAILY, SYR 04/03/17 Insulin Glargine,Hum.rec.anlog (Basaglar Kwikpen U-100) 100 Unit/1 Ml Insuln.pen , 30 UNIT SC QHS 04/03/17 Omeprazole* (Omeprazole*) 40 Mg Capsule.dr, 40 MG PO DAILY, #30 CAP 04/03/17 Atorvastatin* (Atorvastatin*) 40 Mg Tablet, 40 MG PO QHS, #30 TAB 04/03/17 Lisinopril* (Lisinopril*) 10 Mg Tablet, 10 MG PO DAILY, #30 TAB 12/31/16 Amlodipine Besylate* (Amlodipine Besylate*) 2.5 Mg Tablet, 2.5 MG PO DAILY, #30 TAB 02/01/16 Tramadol HCl (Tramadol HCl) 50 Mg Tab, 50 MG PO TID, TAB 01/14/14 Gabapentin* (Gabapentin*) 300 Mg Capsule, 300 MG PO BID, CAP TAKE 1CAP-QAM AND 3CAP-QHS 01/14/14 Discontinued Reported Medications [Basaglar 100UNIT/Ml] No Conflict Check, 50 UNIT SQ QHS INSULIN KWIKPEN 12/31/16 Insulin Lispro (Humalog Kwikpen U-100) 100 Unit/1 Ml Insuln.pen, 0 SQ SLIDING SCALE 12 UNITS-QAM,11 UNITS-NOON, 11 UNITS-QPM 12/31/16 Metformin Hcl* (Metformin Hcl*) 1,000 Mg Tablet, 1000 MG PO WITH BREAKFAST DINNE , #60 TAB 12/31/16 Ranitidine Hcl (Ranitidine Hcl) 300 Mg Capsule, 300 MG PO HS, CAP 01/14/14 Allergies Allergies: Coded Allergies: Penicillins (Verified Allergy, Severe, 04/03/17) ibuprofen (Verified Allergy, Severe, 04/03/17) PMhx/Soc Reviewed in chart. As per HPI. History of Surgery: Yes (HYSTERECTOMY, partial thyroidectomy) Anesthesia Reaction: No Hx Neurological Disorder: No Hx Respiratory Disorders: No Hx Cardiac Disorders: Yes (htn) Hx Psychiatric Problems: No Hx Miscellaneous Medical Probl: Yes (dm) Hx Alcohol Use: No Hx Substance Use: No Hx Tobacco Use: No FmHx No family history relevant to presenting complaint Physical Exam Vitals Vital Signs Date Time Temp Pulse Resp B/P Pulse Ox O2 Delivery O2 Flow Rate FiO2 04/04/17 03:08 98 16 108/69 98 Room Air 04/03/17 23:54 98.8 107 16 116/60 98 Room Air 04/03/17 20:16 99.1 115 20 108/58 100 Physical Exam Const: Alert, moderate distress Head: Atraumatic Eyes: Normal Conjunctiva ENT: Normal External Ears, Nose and Mouth. Neck: Full range of motion. JVD. Resp: Clear to auscultation bilaterally Cardio: Regular rate and rhythm, no murmurs Abd: Soft, mild, generalized tenderness but no rebound or guarding. No masses or abnormal pulsations non tender, non distended. Normal bowel sounds Skin: No petechiae or rashes Back: No midline or flank tenderness Ext: No cyanosis, or edema Neur: Awake and alert Psych: Normal Mood and Affect Result Diagram: 04/03/17224904/03/172249 Results 24 hrs Laboratory Tests Test 04/03/17 22:50 04/03/17 22:53 04/04/17 00:15 White Blood Count 19.310^3/ul Red Blood Count 4.2810^6/ul Hemoglobin 12.5g/dl Hematocrit 36.2% Mean Corpuscular Volume 84.6fl Mean Corpuscular Hemoglobin 29.2pg Mean Corpuscular Hemoglobin Concent 34.5g/dl Red Cell Distribution Width 14.0% Platelet Count 76018^3/UL Mean Platelet Volume 9.7fl Neutrophils % 91.2% Lymphocytes % 5.1% Monocytes % 2.9% Eosinophils % 0.1% Basophils % 0.3% Nucleated Red Blood Cells % 0.0/100WBC Neutrophils # 17.710^3/ul Lymphocytes # 1.010^3/ul Monocytes # 0.610^3/ul Eosinophils # 0.010^3/ul Basophils # 0.110^3/ul Nucleated Red Blood Cells # 0.010^3/ul Sodium Level 138mmol/L Potassium Level 4.0mmol/L Chloride Level 97mmol/L Carbon Dioxide Level 29mmol/L Anion Gap 16 Blood Urea Nitrogen 21mg/dl Creatinine 0.80mg/dl Glucose Level 325mg/dl Calcium Level 9.5mg/dl Total Bilirubin 0.4mg/dl Direct Bilirubin 0.00mg/dl Indirect Bilirubin 0.4mg/dl Aspartate Amino Transf (AST/SGOT) 24IU/L Alanine Aminotransferase (ALT/SGPT) 38IU/L Alkaline Phosphatase 155IU/L Total Protein 8.1g/dl Albumin 4.1g/dl Globulin 4.00g/dl Albumin/Globulin Ratio 1.02 Lipase 85U/L Bedside Glucose 307mg/dL Urine Color YELLOW Urine Clarity SLIGHTLY CLOUDY Urine pH 7.0 Urine Specific [place] 1.014 Urine Ketones NEGATIVEmg/dL Urine Nitrite NEGATIVEmg/dL Urine Bilirubin NEGATIVEmg/dL Urine Urobilinogen NEGATIVEmg/dL Urine Leukocyte Esterase 3+Sosa/ul Urine Microscopic RBC 2/HPF Urine Microscopic WBC 75/HPF Urine Squamous Epithelial Cells FEW/HPF Urine Transitional Epithelial Cells FEW/HPF Urine Bacteria FEW/HPF Urine Hemoglobin 1+mg/dL Urine Glucose 3+mg/dL Urine Total Protein NEGATIVEmg/dl Current Medications Medications (Trade) Dose Ordered Sig/Taj Route PRN Reason Start Time Stop Time Status Last Admin Dose Admin Sodium Chloride (NS) 1,000 ml @ 1,000 mls/hr Q1H STAT IV 04/03/17 22:31 04/03/17 23:30 DC 12/7/17 23:02 Morphine Sulfate (morphine) 2 mg ONCE STAT IV 04/03/17 22:31 04/03/17 22:32 DC 04/03/17 23:03 Ondansetron HCl 4 mg 4 mg ONCE STAT IV 04/03/17 22:31 04/03/17 22:32 DC 04/03/17 23:03 Sodium Chloride (NS) 100 ml @ ud STK-MED ONCE .ROUTE 04/04/17 00:17 04/04/17 00:18 DC 04/04/17 00:37 Iohexol (Omnipaque 300mg/ ml) 150 ml STK-MED ONCE .ROUTE 04/04/17 00:17 04/04/17 00:18 DC 04/04/17 00:37 Ciprofloxacin (Cipro) 500 mg ONCE ONCE PO 04/04/17 01:30 04/04/17 01:31 DC 04/04/17 01:45 Lab results: Leukocytosis, elevated BUN and hyperglycemia EKG: Time: 22: 17. Sinus tachycardia. Ventricular rate 114. Q waves in leads III and aVF. Poor R-wave progression in the anterior leads. No acute ST segment elevation depression. Normal CO QRS. No ectopy. EP interpretation: Abnormal ECG. Procedures/MDM DOCUMENTS REVIEWED: ED nurse, prior ED, prior records. EGD 01/2016 revealed hiatal hernia, GERD, gastritis with erosions. Colonoscopy revealed diverticulosis but no colonic neoplasm. REEXAMINATION/REEVALUATION: Time:01:00. Doing well. Abdomen soft nontender. Tolerating p.o.'s. MEDICAL DECISION MAKIN-year-old female with history of diabetes, hypertension, GERD diabetic neuropathy presents the ED complaining of abdominal pain, nausea, vomiting and diarrhea after eating spoiled food at her house. CT of the abdomen and pelvis performed to evaluate for an acute process including but not limited to mesenteric ischemia, colitis, perforated viscus, abdominal aortic aneurysm, diverticulitis, appendicitis and bowel obstruction is unremarkable. Symptoms improved with intravenous hydration, analgesics and antiemetics. Diabetic hyperglycemia but no DKA or HHS. Resolved, tolerating p.o.'s and stable for discharge precaution instructions and outpatient follow- up as counseled. Stable for discharge of precautionary instructions and outpatient follow-up as counseled. Counseled patient and family regarding diagnostic workup, diagnosis and need for followup. Understands to return to ED if symptoms recur, worsen or any other concerns. Departure Diagnosis: Primary Impression: Acute generalized abdominal pain Additional Impressions: Nausea vomiting and diarrhea Diabetes mellitus out of control Diabetes mellitus type: type 2 Diabetes mellitus complication status: without complication Diabetes mellitus detention insulin use: with detention use Qualified Code: E11.65 - Uncontrolled type 2 diabetes mellitus without complication, with long-term current use of insulin Condition: Stable (Improved) OMAR TANG MD Apr 03, 2017 22:32
[2017-04-03] MEDS ORDERED: OMEP40CA6 PO (23:02)
[2017-04-03] MEDS ORDERED: ATOR40TA68 PO (23:02)
[2017-04-03] MEDS ORDERED: INSU100I33 SC (23:03)
[2017-04-03] MEDS ORDERED: LIRA0.6P SQ (23:03)
[2017-04-03 23:47] LABS: BASOPHIL # 0.1 10^3/ul (0.0-0.1); BASOPHILS % 0.3 % (0.0-2.0); EOSINOPHILS % 0.1 % (0.0-7.0); HEMATOCRIT 36.2 % (37.0-47.0); HEMOGLOBIN 12.5 g/dl (12.0-16.0); LYMPHOCYTES % 5.1 % (15.0-51.0); MEAN CORPUSCULAR HEMOGLOBIN 29.2 pg (29.0-33.0); MEAN CORPUSCULAR HGB CONC 34.5 g/dl (32.0-37.0); MEAN CORPUSCULAR VOLUME 84.6 fl (82.0-101.0); MEAN PLATELET VOLUME 9.7 fl (7.4-10.4); MONOCYTE # 0.6 10^3/ul (0.3-0.9); MONOCYTES % 2.9 % (0.0-11.0); NEUTROPHIL # 17.7 10^3/ul (1.6-7.5); NEUTROPHILS % 91.2 % (39.0-77.0); PLATELET COUNT 337 10^3/UL (140-415); RED BLOOD COUNT 4.28 10^6/ul (4.20-5.40); WHITE BLOOD COUNT 19.3 10^3/ul (4.8-10.8)
[2017-04-03 23:54] VITALS: TEMP 98.8
[2017-04-04 00:04] LABS: ALBUMIN 4.1 g/dl (3.3-4.9); ALBUMIN/GLOBULIN RATIO 1.02; BILIRUBIN,INDIRECT 0.4 mg/dl (0-1.1); BILIRUBIN,TOTAL 0.4 mg/dl (0.2-1.3); CALCIUM 9.5 mg/dl (8.4-10.2); CREATININE 0.8 mg/dl (0.44-1.00); TOTAL PROTEIN 8.1 g/dl (6.1-8.1)
[2017-04-04] MEDS ORDERED: IOHEXOL 300MG/ML 150 ML BTL ONE (00:17)
[2017-04-04] MEDS ORDERED: SOD CHLORIDE 0.9% 100 ML ONE (00:17)
[2017-04-04] MEDS ORDERED: ONDA4TAB8 PO (01:22)
[2017-04-04] MEDS ORDERED: CIPR500T4 PO (01:22)
[2017-04-04] MEDS ORDERED: CIPROFLOXACIN 500 MG TAB PO ONE (01:30)
[2017-04-04 02:00] LABS: ADD UMIC YES; UR ASCORBIC ACID NEGATIVE (NEGATIVE); UR BACTERIA FEW /HPF (NONE SEEN); UR BILIRUBIN (Dip) NEGATIVE (NEGATIVE); UR BLOOD (Dip) 1+ mg/dL (NEGATIVE); UR CLARITY SLIGHTLY CLOUDY (CLEAR); UR COLOR YELLOW (YELLOW); UR GLUCOSE (Dip) 3+ mg/dL (NEGATIVE); UR KETONES (Dip) NEGATIVE (NEGATIVE); UR LEUKOCYTE ESTERASE (Dip) 3+ Leu/ul (NEGATIVE); UR NITRITE (Dip) NEGATIVE (NEGATIVE); UR RBC 2 /HPF (0-5); UR SPECIFIC GRAVITY (Dip) 1.014 (1.003-1.030); UR SQUAMOUS EPITHELIAL CELL FEW /HPF (FEW); UR TOTAL PROTEIN (Dip) NEGATIVE (NEGATIVE); UR TRANSITIONAL EPI CELL FEW /HPF (NONE SEEN); UR UROBILINOGEN (Dip) NEGATIVE (NEGATIVE)
[2017-04-04 03:08] VITALS: BP 108/69; PULSE 98; RESP 16
--- NOTE | 2017-04-04 06:53 | RADRPT ---
PROCEDURE: CT Abdomen and Pelvis with contrast. CLINICAL INDICATION: Abdominal pain. TECHNIQUE: A CT scan of the abdomen and pelvis was performed with intravenous contrast. The patie nt was scanned following the uncomplicated intravenous administration of 100 cc of Isovue 300. Srinivas nal and sagittal reformatted images were obtained from the axial source images. DICOM images are chase ilable. Images were reviewed on a high-resolution PACS workstation. CTDIvol: 14.42 mGy. DLP: 800.00 mGy-cm. One or more of the following dose reduction techniques were used: - Automated exposure control. - Adjustment of the mA and/or kV according to patient size. - Use of iterative reconstruction technique. COMPARISON: None. FINDINGS: There are mild atelectatic changes in both lower lungs. There is a 1.5 cm cyst in the right hepatic lobe. A 1.0 cm low-attenuation lesion in the border of t he right and left hepatic lobes demonstrates this continues peripheral enhancement, consistent with a hemangioma. The gallbladder is normal in appearance. The common bile duct is not dilated. The sple en is not enlarged. No pancreatic lesion is identified and there is no pancreatic ductal dilatation. The adrenal glands are unremarkable. The kidneys are normal in size. There is no perinephric fat stranding. No hydronephrosis is seen. The small and large bowel are normal in caliber. The colon is underdistended, limiting evaluation fo r colonic wall thickening. There is mild sigmoid colon diverticulosis. The appendix is normal. There is pelvic floor descent with inferior displacement of the urinary bladder, vagina, and rectum up to 4 cm below the pubococcygeal line. The urinary bladder is unremarkable. The patient is status post hysterectomy. No adnexal mass is seen. No lymphadenopathy is identified. There is no ascites. No pneumoperitoneum is seen. There are mild a rterial calcifications. There are calcified injection granulomas in the subcutaneous fat of both buttocks. There is diffuse sclerosis of the L4 vertebral body, nonspecific. IMPRESSION: 1. Limited evaluation for colonic wall thickening due to colonic underdistension. Colitis cannot be excluded. 2. Normal appendix. 3. 1.0 cm hepatic hemangioma. 4. Pelvic floor descent with inferior displacement of the urinary bladder, vagina, and rectum up to 4 cm below the pubococcygeal line. 5. Status post hysterectomy. 6. Mild atherosclerotic arterial calcifications. 7. Diffuse sclerosis of the L4 vertebral body, nonspecific. Metastatic disease is not excluded. Thi s could be further evaluated with bone scan or contrast enhanced MRI if clinically warranted. RPTAT: HTAR .Maximino Cheng MD, Date Time Electronically viewed and signed by .Maximino Cheng MD, on 04/04/2017 00:47 .R/
== END 2017-04-04 03:27 | disposition home or self-care (01) ==
LOC: E/R 20:04
DX: R10.84 Generalized abdominal pain (principal); R11.2 Nausea with vomiting, unspecified; R19.7 Diarrhea, unspecified; E11.65 Type 2 diabetes mellitus with hyperglycemia; Z79.4 Long term (current) use of insulin; Z79.84 Long term (current) use of oral hypoglycemic drugs
CPT/HCPCS: 36415; 74177; 80053; 81001; 82962; 83690; 85025; 93005; 96374; 96375; J2270; J2405; J7030; Q9967; Z7502; Z7610